=== PATIENT | female | born 1985 | race Two or more races ===

== ENCOUNTER 2021-09-10 15:49 | Emergency (ER) | payer MEDICAID, OTHER ==
[~2021-09-10] VITALS: Ht 162.6 cm; Wt 83.9 kg
[2021-09-10] MEDS ORDERED: TETRACAINE HCL 0.5% OPTH(EYE) SOLN 4ML EACHEYE ONE (16:45)
[2021-09-10] MEDS ORDERED: FLUORESCEIN SOD OPTH TEST STRIP OP ONE (16:45)
[2021-09-10] MEDS ORDERED: BACITRACIN TOP OINT 1 UD PKG TOP ONE (16:45)
[2021-09-10 16:50] VITALS: BP 124/72
[2021-09-10] MEDS ORDERED: CIP03OS EACHEYE (17:38)
[2021-09-10] MEDS ORDERED: IBUP800T27 PO (17:39)
== END 2021-09-10 17:56 | disposition home or self-care (01) ==
LOC: ER 15:55
DX: S05.01XA Injury of conjunctiva and corneal abrasion without foreign body, right eye, initial encounter (principal); S05.02XA Injury of conjunctiva and corneal abrasion without foreign body, left eye, initial encounter; Z79.1 Long term (current) use of non-steroidal anti-inflammatories (NSAID); Z79.2 Long term (current) use of antibiotics; X58.XXXA Exposure to other specified factors, initial encounter; Y93.89 Activity, other specified; Y92.89 Other specified places as the place of occurrence of the external cause; Y99.8 Other external cause status